=== PATIENT | male | born 1980 | race American Indian/Alaskan Native ===

== ENCOUNTER 2019-04-15 11:15 | Emergency (ER) | payer BC ==
[2019-04-15 11:30] VITALS: BP 147/95
--- NOTE | 2019-04-15 11:42 | Emergency Department Report ---
Blank Doc - Documentation Documentation: 38-year-old male that presents with generlized weakness and uncontrolled DM. Tachycardia in triage. This initial assessment/diagnostic orders/clinical plan/treatment(s) is/are subject to change based on patient's health status, clinical progression and re- assessment by fellow clinical providers in the ED. Further treatment and workup at subsequent clinical providers discretion. Patient/guardians urged not to elope from the ED as their condition may be serious if not clinically assessed and managed. Initial orders include: 1- Patient sent to MAIN ED for further evaluation and treatment 2- labs 3- UA
[2019-04-15] MEDS ORDERED: SODIUM CHLORIDE 0.9% 1000 ML 1,000 ML IV ONE ×2 (12:39→14:28)
[2019-04-15 13:06] LABS: Hematocrit 42.9 % (35.5-45.6); Hemoglobin 13.9 gm/dl (11.8-15.2); Mean Corpuscular Volume 80 fl (84-94); Red Blood Count 5.38 M/mm3 (3.65-5.03)
[2019-04-15 13:07] LABS: Basophils % (Auto) 0.3 % (0.0-1.8); Eosinophils % (Auto) 0.2 % (0.0-4.3); Lymphocytes # (Auto) 2.1 K/mm3 (1.2-5.4); Lymphocytes % (Auto) 29.3 % (13.4-35.0); Mean Corpuscular HGB Conc 32 % (32-34); Monocytes # (Auto) 0.4 K/mm3 (0.0-0.8); Monocytes % (Auto) 5.6 % (0.0-7.3); Platelet Count 243 K/mm3 (140-440); Red Cell Distribution Width 16.6 % (13.2-15.2)
[2019-04-15 13:21] LABS: Alanine Aminotransferase 121 units/L (7-56); Albumin 4.2 g/dL (3.9-5); BUN/Creatinine Ratio 11; Blood Urea Nitrogen 9 mg/dL (9-20); Calcium 9.9 mg/dL (8.4-10.2); Hemolysis Index 12
--- NOTE | 2019-04-15 13:21 | Emergency Department Report ---
ED General Adult HPI - General Chief complaint: Weakness Stated complaint: WEAKNESS Time Seen by Provider: 04/15/19 11:41 Source: patient Mode of arrival: Ambulatory Limitations: No Limitations - History of Present Illness Initial comments: 38-year-old -[place] male presents to the emergency room stating that he has been feeling weak. Patient is concerned that his blood sugar and blood pressure was elevated. Patient reports when he checked his blood sugar at work it was 441. Patient does have a history of diabetes and hypertension and was treated for colon cancer. Patient is currently on glipizide extended release 5 mg daily and metformin 500 mg nightly. Patient takes lisinopril with hydrochlorothiazide 12/15 0.5 mg daily. Patient has completed chemotherapy March 2018. Patient reports he does have a primary care provider. Onset/Timin -: days(s) Treatments Prior to Arrival: none - Related Data Allergies Allergy/AdvReac Type Severity Reaction Status Date / Time No Known Allergies Allergy Unverified 04/15/19 11:48 ED Review of Systems ROS: Stated complaint: WEAKNESS Other details as noted in HPI ED Past Medical Hx - Past Medical History Previous Medical History?: Yes Hx Hypertension: Yes Hx Diabetes: Yes Additional medical history: Colon CA - Surgical History Past Surgical History?: Yes Hx Cholecystectomy: Yes Additional Surgical History: Tumor removal - Social History Smoking Status: Never Smoker Substance Use Type: None ED Physical Exam - General Limitations: No Limitations General appearance: alert, in no apparent distress - Head Head exam: Present: atraumatic, normocephalic - Eye Eye exam: Present: normal appearance - ENT ENT exam: Present: mucous membranes moist - Neck Neck exam: Present: normal inspection - Respiratory Respiratory exam: Present: normal lung sounds bilaterally. Absent: respiratory distress - Cardiovascular Cardiovascular Exam: Present: regular rate, normal rhythm. Absent: systolic mur mur, diastolic murmur, rubs, gallop - GI/Abdominal GI/Abdominal exam: Present: soft, normal bowel sounds - Rectal Rectal exam: Present: deferred - Extremities Exam Extremities exam: Present: normal inspection - Back Exam Back exam: Present: normal inspection - Neurological Exam Neurological exam: Present: alert, oriented X3 - Psychiatric Psychiatric exam: Present: normal affect, normal mood - Skin Skin exam: Present: warm, dry, intact, normal color. Absent: rash ED Course Vital Signs 04/15/19 04/15/19 11:28 16:12 Temperature 98.1 F Pulse Rate 123 H Respiratory 16 18 Rate Blood Pressure 147/95 O2 Sat by Pulse 93 99 Oximetry ED Medical Decision Making - Lab Data Result diagrams: 04/15/19 12:04 04/15/19 12:04 - Medical Decision Making 38-year-old -[place] male presents to the emergency room stating that he has been feeling weak. Patient is concerned that his blood sugar and blood pressure was elevated. Patient reports when he checked his blood sugar at work it was 441. Patient does have a history of diabetes and hypertension and was t reated for colon cancer. Patient is currently on glipizide extended release 5 mg daily and metformin 500 mg nightly. Patient takes lisinopril with hydrochlorothiazide 12/15 0.5 mg daily. Patient has completed chemotherapy March 2018. Patient reports he does have a primary care provider. Critical care attestation.: If time is entered above; I have spent that time in minutes in the direct care of this critically ill patient, excluding procedure time. ED Disposition Clinical Impression: Diabetes type 2, uncontrolled Disposition: DC-01 TO HOME OR SELFCARE Is pt being admited?: No Does the pt Need Aspirin: No Condition: Stable Instructions: Diabetes Mellitus Type 2 in Adults (ED) Additional Instructions: Continue taking all chronic medications as prescribed. Is very important for you to follow-up with your primary care provider in the next 3 to 4 days. Forms: Work/School Release Form(ED)
[2019-04-15 13:39] LABS: Bilirubin,Urine NEG (Negative); Blood,Urine NEG (Negative); Color,Urine Straw (Yellow); Protein,Urine <15 mg/dL mg/dL (Negative); Urobilinogen,Urine < 2.0 mg/dL (<2.0); WBC,Urine < 1.0 /HPF (0.0-6.0)
[2019-04-15] MEDS ORDERED: INSULIN REGULAR, HUMAN 100 UNITS/1 ML SUB-Q ONE (14:28)
[2019-04-15 17:35] LABS: BUN/Creatinine Ratio 13; Blood Urea Nitrogen 9 mg/dL (9-20); Calcium 9.4 mg/dL (8.4-10.2); Hemolysis Index 8
== END 2019-04-15 17:54 | disposition home or self-care (01) ==
LOC: ED 11:15
DX: E11.9 Type 2 diabetes mellitus without complications (principal); I10 Essential (primary) hypertension; Z85.038 Personal history of other malignant neoplasm of large intestine; Z98.890 Other specified postprocedural states; Z90.49 Acquired absence of other specified parts of digestive tract; Z79.899 Other long term (current) drug therapy
CPT/HCPCS: 36415; 80048; 80053; 81001; 82805; 82962; 85025; 93005; 93010; 99284; J7030